=== PATIENT | female | born 1975 | race American Indian/Alaskan Native ===

== ENCOUNTER 2017-04-03 09:37 | Outpatient (CLI) | payer OTHER ==
--- NOTE | 2017-04-03 13:16 | Mammography Report ---
Screening mammogram: There is several small relatively well circumscribed nodular densities in both breasts. None of these are suspicious. The breast pattern is that of intermediate fibroglandular density in a symmetric and generalized distribution. No suspicious calcifications. CAD views Impression: Bilateral nonsuspicious nodular pattern. Recommendation: This patient's prior studies are being requested for comparison before final evaluation. BI-RADS CATEGORY: 0 = Needs additional imaging evaluation ACR BI-RADS MAMMOGRAPHIC CODES: 0 = Needs additional imaging evaluation; 1 = Negative; 2 = Benign; 3 = Probably benign; 4 = Suspicious; 5 = Malignant; 6 = Known biopsy-proven malignancy COMMENT: 1. Dense breast tissue, i.e., adenosis, fibrocystic changes, etc., may obscure an underlying neoplasm. 2. Approximately 10% of cancers are not detected with mammography. 3. A negative mammography report should not delay biopsy if a clinically suspicious mass is present.
== END 2017-04-03 09:38 | disposition home or self-care (01) ==
LOC: MAMMO 09:37
PROVIDERS: ATTEND Internal Medicine
DX: Z12.31 Encounter for screening mammogram for malignant neoplasm of breast (principal)
CPT/HCPCS: 77067; G0202

== ENCOUNTER 2017-05-05 10:04 | Outpatient (CLI) | payer OTHER ==
--- NOTE | 2017-05-05 14:08 | XRay Report ---
Right hip 2 views. Findings: There are no fractures or other acute findings. In the femoral neck and inferior femoral head, there are parallel areas of sclerosis and lucency which suggest old postsurgical changes. Please correlate with surgical history. Impression: No acute findings.
== END 2017-05-05 10:05 | disposition home or self-care (01) ==
LOC: XRAY 10:04
PROVIDERS: ATTEND Internal Medicine
DX: Z32.00 Encounter for pregnancy test, result unknown (principal); M70.71 Other bursitis of hip, right hip; Y93.89 Activity, other specified
CPT/HCPCS: 81025